=== PATIENT | male | born 1940 | race Caucasian/White ===

== ENCOUNTER 2016-07-26 09:25 | Emergency (ER) | payer MEDICARE, OTHER ==
[~2016-07-26] VITALS: Ht 175.3 cm; Wt 95.0 kg
[~2016-07-26 09:25] MED LIST: LEVO750T25 PO; METR500T PO; OMEP20CA16 PO
[2016-07-26 09:34] VITALS: Ht 175.3 cm; Wt 95.0 kg
[2016-07-26] MEDS ORDERED: ONDANSETRON 4 MG INJ IV STA (09:36)
[2016-07-26] MEDS ORDERED: SOD CHLORIDE 0.9% 1,000 ML IV STA (09:36)
[2016-07-26 10:05] LABS: BASOPHILS % 0.3 % (0.0-2.0); EOSINOPHILS # 0.1 10^3/ul (0.0-0.5); EOSINOPHILS % 0.9 % (0.0-7.0); HEMATOCRIT 49.1 % (42.0-52.0); HEMOGLOBIN 16.2 g/dl (14.0-18.0); LYMPHOCYTES # 0.7 10^3/ul (0.8-2.9); LYMPHOCYTES % 10.7 % (15.0-51.0); MEAN CORPUSCULAR HEMOGLOBIN 26.9 pg (29.0-33.0); MEAN CORPUSCULAR VOLUME 81.4 fl (82.0-101.0); MONOCYTE # 0.1 10^3/ul (0.3-0.9); MONOCYTES % 2.1 % (0.0-11.0); NEUTROPHIL # 5.5 10^3/ul (1.6-7.5); PLATELET COUNT 331 10^3/UL (140-440); RED BLOOD COUNT 6.04 10^6/ul (4.70-6.10); RED CELL DISTRIBUTION WIDTH 14.3 % (11.5-14.5); UNCORRECTED WBC 6.4 10^3/ul (4.8-10.8); WHITE BLOOD COUNT 6.4 10^3/ul (4.8-10.8)
[2016-07-26 10:07] LABS: CONDITION 1; LH ANALYZER COMMENTS 1
[2016-07-26 10:08] LABS: CHLORIDE 107 mmol/L (97-110); INR 1.01; PROTIME 13.3 Sec (12.2-14.2); SODIUM 143 mmol/L (135-144)
[2016-07-26 10:11] LABS: ANION GAP 19 (8-16); CARBON DIOXIDE 21 mmol/L (21-31); CREATININE 0.84 mg/dl (0.61-1.24)
[2016-07-26 10:12] LABS: BLOOD UREA NITROGEN 11 mg/dl (7-20); CALCIUM 9.3 mg/dl (8.4-10.2); GLUCOSE 118 mg/dl (70-220)
[2016-07-26] MEDS ORDERED: DEXL60CA2 PO (10:17)
[2016-07-26] MEDS ORDERED: TAMS0.4C2 PO (10:17)
[2016-07-26 10:28] LABS: TROPONIN-I < 0.012 ng/ml (0.00-0.12)
[2016-07-26] MEDS ORDERED: MECLIZINE 12.5 MG TAB PO ONE (10:30)
--- NOTE | 2016-07-26 10:48 | RADRPT ---
PROCEDURE: CT brain without contrast CLINICAL INDICATION: Syncope, dizziness TECHNIQUE: CT of the brain without contrast performed on a multidetector CT scanner, with multiplan ar reformats. One or more of the following dose reduction techniques were used: Automated exposure control, adjustment in mA and / or kV according to patient size, use of iterative reconstructive sailaja hnique. CTDIvol = 43 mGy; DLP = 720 mGy-cm. COMPARISON: None available FINDINGS: No acute intracranial hemorrhage is identified. No extra-axial fluid collection is seen. There is no mass effect. No midline shift is identified. Ventricles and sulci are mild to moderately enlarged compatible with volume loss. There are minimal areas of hypodensity in the periventricular - deep white matter which are nonspeci fic but suggestive of chronic small vessel ischemic changes. Man-white differentiation is preserve d. Atherosclerotic calcifications of the intracranial internal carotid arteries are noted. Mastoid air cells and imaged paranasal sinuses grossly clear. There are tiny foci of gas in the upper right vulcanizer space, and in the right cavernous sinus. Fi ndings may be iatrogenic, related to venous access. IMPRESSION: 1. No evidence of acute intracranial pathology. 2. Mild to moderate volume loss, with minimal chronic small vessel ischemic changes. 3. Tiny foci of gas in the right vulcanizer space, and right cavernous sinus, which could be iatrog enic, related to venous access. Please correlate. RPTAT: VV .Milton Duran MD, MD Date Time Electronically viewed and signed by .Milton Duran MD, MD on 07/26/2016 10:47 .O/
--- NOTE | 2016-07-26 10:57 | RADRPT ---
PROCEDURE: XR Chest. CLINICAL INDICATION: Shortness of breath and syncope. TECHNIQUE: Single frontal view. COMPARISON: None. FINDINGS: The lungs are clear. The heart size is normal. There is no pleural effusion. There is no pneumothorax. IMPRESSION: 1. Normal chest radiograph. RPTAT: QQ .Jayesh Olivier MD, MD Date Time Electronically viewed and signed by .Jayesh Olivier MD, on 07/26/2016 10:56 .R/
[2016-07-26 11:06] VITALS: BP 143/87; PULSE 90; RESP 20
[2016-07-26] MEDS ORDERED: MECL-77 PO (12:59)
[2016-07-26] MEDS ORDERED: ONDA4TAB11 PO (13:09)
--- NOTE | 2016-07-26 23:49 | ERD ---
DATE OF SERVICE: 07/26/2016 HISTORY OF PRESENT ILLNESS: This 76-year-old male comes to the emergency room for vertigo and nause a that began approximately 4:00 a.m. He has not had any vomiting. Denies abdominal pain. He is ac companied by his son. He does have a history of intermittent vertigo and [facility] He has no other neurological deficits. REVIEW OF SYSTEMS: Ten-point review of systems negative except as in HPI. PAST MEDICAL HISTORY: Vertigo. PAST SURGICAL HISTORY: ____ surgery, cholecystectomy. SOCIAL HISTORY: Lives with family. Denies tobacco, alcohol and other drugs. FAMILY HISTORY: Noncontributory to vertigo. PHYSICAL EXAMINATION: VITAL SIGNS: Temperature 98.1, pulse 63, blood pressure 182/97, respiratory rate 20, oxygen saturat ion 99% on room air. GENERAL: No acute distress. HEENT: Normocephalic, atraumatic. Tympanic membranes within normal limits bilaterally. NECK: Supple. No JVD or meningismus. CARDIAC: Regular rate and rhythm. No murmurs. LUNGS: Clear to auscultation bilaterally. ABDOMEN: Soft, nontender, nondistended. No masses. EXTREMITIES: No cyanosis, clubbing or edema. NEUROLOGIC: Alert and oriented x3. Cranial nerves II through XII intact. Cerebellar hczxql-lv-jal e test within normal limits. Normal gait. SKIN: No rashes or other lesions. VASCULAR: Distal pulses intact to all 4 extremities. DIAGNOSTIC DATA: Laboratory: CBC within normal limits. Chemistries: BMP within normal limits. T roponin is negative. Coagulation studies within normal limits with an INR of 1. Chest x-ray interpretation by myself: No acute process, no infiltrates, no pulmonary edema, no pneu mothorax, no fractures. CT head interpretation: No acute process, no hemorrhage, no mass effect, no midline shift, no skull fracture. The patient does have a tiny foci of gas in the right cavernous sinus. EKG interpretation: Normal sinus rhythm, left axis deviation, rate of 65, two separate PVCs, left a nterior fascicular block. No ST or T-wave changes concerning for acute ischemia. manager monitoring interpretation: Normal sinus rhythm without arrhythmia. EMERGENCY DEPARTMENT COURSE AND MEDICAL DECISION MAKING: Cardiac workup as well as head CT report o n the patient appears to have return of his prior vertigo. He does not take any medications at home . Gave him Antivert in the emergency room, and he was feeling better. Vertigo was only positional. The patient had no vertigo when he was still. This was acute onset, as he says it usually is. I believe that peripheral vertigo is much more likely than a central cause at this point. The patient has no focal neurological deficits to suggest acute CVA. He also has no signs of acute coronary sy ndrome with a negative troponin and nonischemic EKG after several hours of symptoms. I spoke with Dipika East regarding the small amount of air in the cavernous sinus, and he agrees this is not conc erning and is likely iatrogenic from IV medications with small air bubble in the line. He did not t hink this needs to be followed up any further. The patient strongly wants to go home and does not w ant to be admitted to the hospital at all. He is feeling better. His son is at the bedside too. I am going to discharge him with prescription for Antivert as well as close primary care followup wit h instructions to see his doctor and call today for a referral for both ENT and Neurology. Also gav e him strict return precautions to the hospital if he is concerned at all or has any neurological de ficits. The patient was given liter of normal saline as well as Zofran IV and an Antivert tablet. DISCHARGE DIAGNOSES: 1. Acute vertigo. 2. Nausea. DISPOSITION: Home in stable condition. Dictated By: GAMALIEL CLEARY/VERONIQUE Conf#: [id number] DID#: [id number]
== END 2016-07-26 13:48 | disposition home or self-care (01) ==
LOC: E/R 09:25
DX: R42 Dizziness and giddiness (principal); R11.0 Nausea; R06.02 Shortness of breath; R40.2142 Coma scale, eyes open, spontaneous, at arrival to emergency department; R40.2252 Coma scale, best verbal response, oriented, at arrival to emergency department; R40.2362 Coma scale, best motor response, obeys commands, at arrival to emergency department
CPT/HCPCS: 70450; 71010; 80048; 82962; 84484; 85025; 85610; 85730; 93005; J2405; J7030; 36415; 96374